=== PATIENT | female | born 1985 | race African-American/Black ===

== ENCOUNTER 2020-07-09 09:28 | Inpatient (IN) | payer OTHER ==
[2020-07-09] MEDS ORDERED: Sodium Chloride 0.9% 10 ML Syringe FLUSH PRN (09:55)
[2020-07-09] MEDS ORDERED: Lidocaine 1% 50 ML MDV INJECT ONE (09:55)
[2020-07-09] MEDS ORDERED: Nalbuphine 10 MG/1 ML Vial IVPUSH PRN (09:55)
[2020-07-09] MEDS ORDERED: Oxytocin/Lactated Ringers 10 UNIT/1,000 ML BAG IV SCH ×2 (10:00→16:45)
[2020-07-09] MEDS ORDERED: Lidocaine 1.5% with EPINEPHrine 1:200,000 5 ML Amp ONE (11:00)
--- NOTE | 2020-07-09 11:36 | PCM.LDHP ---
L&D History of Present Illness - General Date of Service: 07/09/20 Admit Problem/Dx: Patient Status Order with Admit Dx/Problem 07/09/20 09:56 Patient Status [ADT] Routine Admission Diagnosis/Problem Admission Diagnosis/Problem Source of Information: Patient History Limitations: Reports: No Limitations - History of Present Illness Introduction:: Patient is a 34 y/o at 38 6/7 wks who presents in labor. Contractions started this morning. No pain, bleeding, or spotting. - Related Data Allergies/Adverse Reactions: Allergies Allergy/AdvReac Type Severity Reaction Status Date / Time No Known Allergies Allergy Verified 07/09/20 09:55 Home Medications: Home Meds Aspirin 81 mg PO DAILY 07/09/20 [History] Iron 18 mg PO BID 07/09/20 [History] 105/Iron/Folic AC/Dha [Prena1 True Combo Pack] 1 each PO DAILY 07/09/20 [History] Past Medical History Cardiovascular History: Reports: Other (See Below) (History of gestational HTN) [employer] SPECIALIST History: Reports: , Spontaneous : 5 Para: 2 LMP (Approximate): Hematologic History: Reports: Other (See Below) Other Hematologic History: 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 - Infectious Disease History Infectious Disease History: Reports: TB - Past Surgical History Female Surgical History: Reports: D&C (x2) Social & Family History - Tobacco Use Tobacco Use Status *Q: Never Tobacco User Second Hand Smoke Exposure: No - Alcohol Use Alcohol Use History: No - Recreational Drug Use Recreational Drug Use: No H&P Review of Systems - Review of Systems: Review Of Systems: See Below General: Reports: No Symptoms Pulmonary: Reports: No Symptoms Cardiovascular: Reports: No Symptoms Gastrointestinal: Reports: Abdominal Pain (contractions ) Genitourinary: Reports: No Symptoms Musculoskeletal: Reports: No Symptoms L&D Exam - Exam Exam: See Below - Vital Signs Vital Signs: Last Vital Signs Temp 37.3 C 07/09/20 09:56 Pulse 122 H 07/09/20 09:56 Resp 14 07/09/20 09:56 BP 135/81 07/09/20 09:56 Pulse Ox 100 07/09/20 09:56 Weight: 84.822 kg - OB Specific Contraction Intensity: Moderate to Strong Movement: Active Heart Tones: Present Heart Tones per Min: 145 Heart Rate (FHR) Variability: Moderate (6-25 bmp) Presentation: Vertex - Madrid Score Madrid Score Cervix Position: Midposition Madrid Score Consistency: Soft [place] Score Effacement: >80% [place] Score Dilation: > 5 cm Madrid Score 's Station: -2 [place] Score Total: 10 - Exam General: Alert, Oriented, Cooperative Lungs: Clear to Auscultation, Normal Respiratory Effort Cardiovascular: Regular Rate, Regular Rhythm GI/Abdominal Exam: Soft, Non-Tender Genitourinary: Normal external exam Extremities: Normal Inspection Skin: Warm, Dry, Intact - Patient Data Lab Results Last 24 hrs: Laboratory Results - last 24 hr 07/09/20 07/09/20 07/09/20 Range/Units 10:05 10:16 10:16 WBC 8.32 (3.98-10.04) K/mm3 RBC 4.13 (3.98-5.22) M/mm3 Hgb 11.4 (11.2-15.7) gm/dl Hct 33.5 L (34.1-44.9) % MCV 81.1 (79.4-94.8) fl MCH 27.6 (25.6-32.2) pg MCHC 34.0 (32.2-35.5) g/dl RDW Std Deviation 51.1 H (36.4-46.3) fL Plt Count 201 (182-369) K/mm3 MPV 10.4 (9.4-12.3) fl Neut % (Auto) 79.2 H (34.0-71.1) % Lymph % (Auto) 12.4 L (19.3-51.7) % [place] % (Auto) 7.2 (4.7-12.5) % Eos % (Auto) 1.0 (0.7-5.8) Baso % (Auto) 0.2 (0.1-1.2) % Neut # (Auto) 6.59 H (1.56-6.13) K/mm3 Lymph # (Auto) 1.03 L (1.18-3.74) K/mm3 [place] # (Auto) 0.60 H (0.24-0.36) K/mm3 Eos # (Auto) 0.08 (0.04-0.36) K/mm3 Baso # (Auto) 0.02 (0.01-0.08) K/mm3 Manual Slide Review Normal smear SARS-CoV-2 RNA (SHERRY) Negative (NEGATIVE) Blood Type A POSITIVE Gel Antibody Screen Negative Result Diagrams: 07/09/20 10:16 - Problem List (1) 38 weeks gestation of SNOMED Code(s): 81016227 ICD Code: Z3A.38 - 38 WEEKS GESTATION OF Status: Acute Current Visit: Yes (2) Normal labor SNOMED Code(s): 34839462 ICD Code: O80 - ENCOUNTER FOR FULL-TERM UNCOMPLICATED DELIVERY; Z37.9 - OUTCOME OF DELIVERY, UNSPECIFIED Status: Acute Current Visit: Yes Problem List Initiated/Reviewed/Updated: Yes Orders Last 24hrs: Active Orders 24 hr Category Date Time Status Patient Status [ADT] Routine ADT 07/09/20 09:56 Active Activity as Tolerated [RC] PFP Care 07/09/20 09:56 Active Communication Order [RC] ASDIRECTED Care 07/09/20 09:56 Active Notify Provider [RC] PFP Care 07/09/20 09:56 Active Notify Provider [RC] PRN Care 07/09/20 09:56 Active Peripheral IV Care [RC] . DIRECTED Care 07/09/20 09:57 Active Pump Management, Intrathecal [RC] ASDIRECTED Care 07/09/20 10:01 Active Urinary Catheter Assessment [RC] ASDIRECTED Care 07/09/20 09:55 Active Vital Signs [RC] PER UNIT ROUTINE Care 07/09/20 09:56 Active Regular Diet [DIET] Diet 07/09/20 Breakfast Active PATIENT RETYPE [BBK] Routine Lab 07/09/20 11:23 Ordered RAPID PLASMA REAGIN,RPR [CHEM] Routine Lab 07/09/20 10:16 Received Lactated Ringers [Ringers, Lactated] 1,000 ml Med 07/09/20 10:00 Active IV ASDIRECTED Nalbuphine [Nubain] Med 07/09/20 09:55 Active 10 mg IVPUSH Q2H PRN Oxytocin/Lactated Ringers [Pitocin in LR 10 Units/1,000 Med 07/09/20 10:00 Active ML] 10 unit in 1,000 ml IV .CONTINUOUS Sodium Chloride 0.9% [Saline Flush] Med 11/25/20 09:55 Active 10 ml FLUSH ASDIRECTED PRN Electronic Heart Tones Ext w TOCO [WOMSER] Oth 07/09/20 09:56 Ordered Routine Electronic Heart Tones Internal [WOMSER] Per Unit Ot 07/09/20 09:56 Ordered Routine Peripheral IV Insertion Adult [OM.PC] Routine Ot 07/09/20 09:56 Ordered Resuscitation Status Routine Resus Stat 07/09/20 09:55 Ordered Medication Orders Oxytocin/Lactated Ringer's (Pitocin In Lr 10 Units/1,000 Ml) 10 unit in 1,000 mls @ 500 mls/hr IV .CONTINUOUS RONI Lactated Ringer's (Ringers, Lactated) 1,000 mls @ 100 mls/hr IV ASDIRECTED RONI Nalbuphine HCl (Nubain) 10 mg IVPUSH Q2H PRN PRN Reason: Pain Sodium Chloride (Saline Flush) 10 ml FLUSH ASDIRECTED PRN PRN Reason: Keep Vein Open Assessment/Plan Comment:: * Labs * GBS negative * Pain management per patient preference * Anticipate
[2020-07-09] MEDS ORDERED: Bupivacaine/fentaNYL/NS 100 ML Bag EPIDUR PRN (11:37)
[2020-07-09] MEDS ORDERED: fentaNYL 100 MCG/2 ML SDV EPIDUR PRN (11:37)
[2020-07-09] MEDS ORDERED: ePHEDrine 50 MG/ML SDV IVPUSH PRN (11:37)
[2020-07-09] MEDS ORDERED: diphenhydrAMINE 50 MG/ML SDV IVPUSH PRN (11:37)
[2020-07-09] MEDS: Lactated Ringers 1,000 ML IV SCH ×3 (11:57→13:11)
--- NOTE | 2020-07-09 12:14 | PCM.PREANE ---
Preanesthetic Assessment - Anesthesia/Transfusion/Family Hx Anesthesia History: Prior Anesthesia Without Reaction Transfusion History: No Prior Transfusion(s) - Review of Systems General: No Symptoms Pulmonary: No Symptoms Cardiovascular: No Symptoms Gastrointestinal: No Symptoms Neurological: No Symptoms Other: Reports: None - Physical Assessment NPO Status Date: 07/08/20 NPO Status Time: 09:00 Vital Signs: Last Vital Signs Temp 99.2 F 07/09/20 09:56 Pulse 122 H 07/09/20 09:56 Resp 14 07/09/20 09:56 BP 135/81 07/09/20 09:56 Pulse Ox 100 07/09/20 09:56 Height: 1.68 m Weight: 84.822 kg ASA Class: 2 Mental Status: Alert & Oriented x3 Airway Class: Mallampati = 2 Dentition: Reports: Normal Dentition Thyro-Mental Finger Breadths: 3 Mouth Opening Finger Breadths: 3 ROM/Head Extension: Full Lungs: Clear to Auscultation, Normal Respiratory Effort Cardiovascular: Regular Rate, Regular Rhythm - Lab Values: Laboratory Last Values WBC 8.32 K/mm3 (3.98-10.04) 07/09/20 10:16 RBC 4.13 M/mm3 (3.98-5.22) 07/09/20 10:16 Hgb 11.4 gm/dl (11.2-15.7) 07/09/20 10:16 Hct 33.5 % (34.1-44.9) L 07/09/20 10:16 MCV 81.1 fl (79.4-94.8) 07/09/20 10:16 MCH 27.6 pg (25.6-32.2) 07/09/20 10:16 MCHC 34.0 g/dl (32.2-35.5) 07/09/20 10:16 RDW Std Deviation 51.1 fL (36.4-46.3) H 07/09/20 10:16 Plt Count 201 K/mm3 (182-369) 07/09/20 10:16 MPV 10.4 fl (9.4-12.3) 07/09/20 10:16 Neut % (Auto) 79.2 % (34.0-71.1) H 07/09/20 10:16 Lymph % (Auto) 12.4 % (19.3-51.7) L 07/09/20 10:16 [place] % (Auto) 7.2 % (4.7-12.5) 07/09/20 10:16 Eos % (Auto) 1.0 (0.7-5.8) 07/09/20 10:16 Baso % (Auto) 0.2 % (0.1-1.2) 07/09/20 10:16 Neut # (Auto) 6.59 K/mm3 (1.56-6.13) H 07/09/20 10:16 Lymph # (Auto) 1.03 K/mm3 (1.18-3.74) L 07/09/20 10:16 [place] # (Auto) 0.60 K/mm3 (0.24-0.36) H 07/09/20 10:16 Eos # (Auto) 0.08 K/mm3 (0.04-0.36) 07/09/20 10:16 Baso # (Auto) 0.02 K/mm3 (0.01-0.08) 07/09/20 10:16 Manual Slide Review Normal smear 07/09/20 10:16 SARS-CoV-2 RNA (SHERRY) Negative (NEGATIVE) 07/09/20 10:05 Blood Type A POSITIVE 07/09/20 10:16 Gel Antibody Screen Negative 07/09/20 10:16 - Allergies Allergies/Adverse Reactions: Allergies Allergy/AdvReac Type Severity Reaction Status Date / Time No Known Allergies Allergy Verified 07/09/20 09:55 - Acknowledgements Anesthesia Type Planned: Epidural Pt an Appropriate Candidate for the Planned Anesthesia: Yes Alternatives and Risks of Anesthesia Discussed w Pt/Guardian: Yes Pt/Guardian Understands and Agrees with Anesthesia Plan: Yes 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 PP hemorrhage after delivery Hematologic History: Reports: Anemia, Other (See Below) Other Hematologic History: 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 - SUBSTANCE USE Tobacco Use Status *Q: Never Tobacco User Second Hand Smoke Exposure: No Recreational Drug Use History: No - HOME MEDS Home Medications: Home Meds Aspirin 81 mg PO DAILY 07/09/20 [History] Iron 18 mg PO BID 07/09/20 [History] 105/Iron/Folic AC/Dha [Prena1 True Combo Pack] 1 each PO DAILY 07/09/20 [History] - CURRENT (IN HOUSE) MEDS Current Meds: Current Medications Diphenhydramine HCl (Benadryl) 25 mg IVPUSH Q6H PRN PRN Reason: pruritis Ephedrine Sulfate (Ephedrine Sulfate) 5 mg IVPUSH ASDIRECTED PRN PRN Reason: Hypotension Fentanyl (Sublimaze) 100 mcg EPIDUR Q3H PRN PRN Reason: Pain Fentanyl/Bupivacaine HCl (Fentanyl/Bupivacaine/Ns 2 Mcg-0.125% 100 Ml) 100 ml EPIDUR ASDIRECTED PRN PRN Reason: Pain Oxytocin/Lactated Ringer's (Pitocin In Lr 10 Units/1,000 Ml) 10 unit in 1,000 mls @ 500 mls/hr IV .CONTINUOUS RONI Lactated Ringer's (Ringers, Lactated) 1,000 mls @ 100 mls/hr IV ASDIRECTED RONI Last Admin: 07/09/20 11:57 Dose: 100 mls/hr Documented by: Nalbuphine HCl (Nubain) 10 mg IVPUSH Q2H PRN PRN Reason: Pain Sodium Chloride (Saline Flush) 10 ml FLUSH ASDIRECTED PRN PRN Reason: Keep Vein Open Discontinued Medications Lidocaine HCl (Xylocaine 1%) 50 ml INJECT ONETIME ONE Stop: 07/09/20 09:56
[2020-07-09] MEDS ORDERED: Methylergonovine 0.2 MG/1 ML Amp IM STA (18:06)
--- NOTE | 2020-07-09 18:06 | PCM.DEL ---
L & D Note - General Info Date of Service: 07/09/20 - Delivery Note Labor: Spontaneous Delivery Outcome: Livebirth Delivery Method: Spontaneous Vaginal Delivery-Single Delivery Mode: Spontaneous Presentation: Vertex Nuchal Cord: None Anesthesia Type: Epidural Amniotic Fluid Description: Clear Episiotomy Type: None Laceration: 2nd Degree, Perineal Suture type: Vicryl Suture size: 2-0 Placenta: Intact, Spontaneous Cord: 3 Vessels Estimated Blood Loss: 100 Resuscitation Needed: Yes : Bulb Syringe, Stimulated, Leslie Used, Warmer Used Delivery Comments (Free Text/Narrative):: Patient found to be complete and began pushing. With maternal pushing effort head delivered from an JABARI presentation. With downward traction shoulders and body delivered. Infant placed on maternal abdomen. Cord clamped and cut. Cord blood obtained. Placenta allowed time to separate and expelled intact. Inspection of perineum showed small 2nd degree. This was repaired with a 2-0 Vicryl. Initial EBL after delivery 100 cc. About 5-10 minutes after delivery had small 100-200 cc gush. Given 0.2 mg Methergine with good response - General Info Date of Service: 07/09/20 - Patient Data Vitals - Most Recent: Last Vital Signs Temp 37.3 C 07/09/20 09:56 Pulse 122 H 07/09/20 09:56 Resp 14 07/09/20 09:56 BP 135/81 07/09/20 09:56 Pulse Ox 100 07/09/20 09:56 Weight - Most Recent: 84.822 kg Lab Results Last 24 Hours: Laboratory Results - last 24 hr 07/09/20 07/09/20 07/09/20 Range/Units 10:05 10:16 10:16 WBC 8.32 (3.98-10.04) K/mm3 RBC 4.13 (3.98-5.22) M/mm3 Hgb 11.4 (11.2-15.7) gm/dl Hct 33.5 L (34.1-44.9) % MCV 81.1 (79.4-94.8) fl MCH 27.6 (25.6-32.2) pg MCHC 34.0 (32.2-35.5) g/dl RDW Std Deviation 51.1 H (36.4-46.3) fL Plt Count 201 (182-369) K/mm3 MPV 10.4 (9.4-12.3) fl Neut % (Auto) 79.2 H (34.0-71.1) % Lymph % (Auto) 12.4 L (19.3-51.7) % [place] % (Auto) 7.2 (4.7-12.5) % Eos % (Auto) 1.0 (0.7-5.8) Baso % (Auto) 0.2 (0.1-1.2) % Neut # (Auto) 6.59 H (1.56-6.13) K/mm3 Lymph # (Auto) 1.03 L (1.18-3.74) K/mm3 [place] # (Auto) 0.60 H (0.24-0.36) K/mm3 Eos # (Auto) 0.08 (0.04-0.36) K/mm3 Baso # (Auto) 0.02 (0.01-0.08) K/mm3 Manual Slide Review Normal smear SARS-CoV-2 RNA (SHERRY) Negative (NEGATIVE) Blood Type A POSITIVE Gel Antibody Screen Negative Med Orders - Current: Current Medications Diphenhydramine HCl (Benadryl) 25 mg IVPUSH Q6H PRN PRN Reason: pruritis Ephedrine Sulfate (Ephedrine Sulfate) 5 mg IVPUSH ASDIRECTED PRN PRN Reason: Hypotension Fentanyl (Sublimaze) 100 mcg EPIDUR Q3H PRN PRN Reason: Pain Last Admin: 07/09/20 12:17 Dose: 100 mcg Documented by: Fentanyl/Bupivacaine HCl (Fentanyl/Bupivacaine/Ns 2 Mcg-0.125% 100 Ml) 100 ml EPIDUR ASDIRECTED PRN PRN Reason: Pain Last Admin: 07/09/20 12:18 Dose: 100 ml Documented by: Oxytocin/Lactated Ringer's (Pitocin In Lr 10 Units/1,000 Ml) 10 unit in 1,000 mls @ 500 mls/hr IV .CONTINUOUS RONI Lactated Ringer's (Ringers, Lactated) 1,000 mls @ 100 mls/hr IV ASDIRECTED RONI Last Admin: 07/09/20 13:11 Dose: 100 mls/hr Documented by: Oxytocin/Lactated Ringer's (Pitocin In Lr 10 Units/1,000 Ml) 10 unit in 1,000 mls @ 12 mls/hr IV TITRATE RONI; Protocol Last Admin: 07/09/20 16:48 Dose: 2 munits/min, 12 mls/hr Documented by: Nalbuphine HCl (Nubain) 10 mg IVPUSH Q2H PRN PRN Reason: Pain Sodium Chloride (Saline Flush) 10 ml FLUSH ASDIRECTED PRN PRN Reason: Keep Vein Open Discontinued Medications Lidocaine HCl (Xylocaine 1%) 50 ml INJECT ONETIME ONE Stop: 07/09/20 09:56 Tranexamic Acid (Cyklokapron) Confirm Administered Dose 1,000 mg .ROUTE .STK-MED ONE Stop: 07/09/20 16:15 - Problem List & Annotations (1) 38 weeks gestation of SNOMED Code(s): 99123391 Code(s): Z3A.38 - 38 WEEKS GESTATION OF Status: Acute Current Visit: Yes (2) Normal labor SNOMED Code(s): 96957680 Code(s): O80 - ENCOUNTER FOR FULL-TERM UNCOMPLICATED DELIVERY; Z37.9 - OUTCOME OF DELIVERY, UNSPECIFIED Status: Acute Current Visit: Yes (3) Vaginal delivery SNOMED Code(s): 176416458 Code(s): O80 - ENCOUNTER FOR FULL-TERM UNCOMPLICATED DELIVERY Status: Acute Current Visit: Yes - Problem List Review Problem List Initiated/Reviewed/Updated: Yes - My Orders Last 24 Hours: My Active Orders 07/09/20 Breakfast Regular Diet [DIET] 07/09/20 09:55 Urinary Catheter Assessment [RC] ASDIRECTED Nalbuphine [Nubain] 10 mg IVPUSH Q2H PRN Sodium Chloride 0.9% [Saline Flush] 10 ml FLUSH ASDIRECTED PRN Resuscitation Status Routine 07/09/20 09:56 Patient Status [ADT] Routine Activity as Tolerated [RC] PFP Communication Order [RC] ASDIRECTED Notify Provider [RC] PFP Notify Provider [RC] PRN Vital Signs [RC] PER UNIT ROUTINE Electronic Heart Tones Ext w TOCO [WOMSER] Routine Electronic Heart Tones Internal [WOMSER] Per Unit Routine Peripheral IV Insertion Adult [OM.PC] Routine 07/09/20 09:57 Peripheral IV Care [RC] . DIRECTED 07/09/20 10:00 Lactated Ringers [Ringers, Lactated] 1,000 ml IV ASDIRECTED Oxytocin/Lactated Ringers [Pitocin in LR 10 Units/1,000 ML] 10 unit in 1,000 ml IV .CONTINUOUS 07/09/20 10:01 Pump Management, Intrathecal [RC] ASDIRECTED 07/09/20 10:16 RAPID PLASMA REAGIN,RPR [CHEM] Routine 07/09/20 11:23 PATIENT RETYPE [BBK] Routine 07/09/20 16:45 Oxytocin/Lactated Ringers [Pitocin in LR 10 Units/1,000 ML] 10 unit in 1,000 ml IV TITRATE - Assessment Assessment:: PPD#0 - Plan Plan:: * Routine cares * Monitor bleeding closely * Breast feeding * Discharge home in 1-2 days
[2020-07-09] MEDS ORDERED: Acetaminophen 325 MG Tab PO PRN (18:26)
[2020-07-09] MEDS ORDERED: Witch Hazel Medicated Pads 40/Jar TOP PRN (18:26)
[2020-07-09] MEDS ORDERED: Docusate Sodium 100 MG Cap PO PRN (18:26)
[2020-07-09] MEDS ORDERED: Benzocaine/Menthol 20%-0.5% Spray 56 GM Canister TOP PRN (18:26)
[2020-07-09] MEDS: Ibuprofen 600 MG Tab PO PRN (19:42)
--- NOTE | 2020-07-10 08:04 | PCM.DCSUM1 ---
Discharge Summary - Hospital Course Diagnosis: Stroke: No - Discharge Data Discharge Date: 07/10/20 Discharge Disposition: Home, Self-Care 01 Condition: Good - Referral to Home Health Primary Care Physician: Donya Avitia MD - Patient Instructions Diet: Usual Diet as Tolerated Activity: No Strenuous Activities Driving: May Drive Today Showering/Bathing: December Shower Notify Provider of: Fever, Increased Pain, Swelling and Redness, Drainage - Discharge Plan *PRESCRIPTION DRUG MONITORING PROGRAM REVIEWED*: No *COPY OF PRESCRIPTION DRUG MONITORING REPORT IN PATIENT JAIME: No Home Medications: Home Meds Aspirin 81 mg PO DAILY 07/09/20 [History] Iron 18 mg PO BID 07/09/20 [History] 105/Iron/Folic AC/Dha [Prena1 True Combo Pack] 1 each PO DAILY 07/09/20 [History] Referrals: Donya Avitia MD [Primary Care Provider] - (2 weeks) - Discharge Summary/Plan Comment DC Time >30 min.: No - Patient Data Vitals - Most Recent: Last Vital Signs Temp 36.7 C 07/10/20 04:09 Pulse 70 07/10/20 04:09 Resp 14 07/10/20 04:09 BP 131/95 H 07/10/20 04:09 Pulse Ox 99 07/10/20 04:09 Weight - Most Recent: 84.822 kg I&O - Last 24 hours: Intake & Output 07/09/20 07/10/20 07/10/20 22:59 06:59 14:59 Intake Total 4000 Balance 4000 Lab Results - Last 24 hrs: Laboratory Results - last 24 hr 07/09/20 07/09/20 07/09/20 Range/Units 10:05 10:16 10:16 WBC 8.32 (3.98-10.04) K/mm3 RBC 4.13 (3.98-5.22) M/mm3 Hgb 11.4 (11.2-15.7) gm/dl Hct 33.5 L (34.1-44.9) % MCV 81.1 (79.4-94.8) fl MCH 27.6 (25.6-32.2) pg MCHC 34.0 (32.2-35.5) g/dl RDW Std Deviation 51.1 H (36.4-46.3) fL Plt Count 201 (182-369) K/mm3 MPV 10.4 (9.4-12.3) fl Neut % (Auto) 79.2 H (34.0-71.1) % Lymph % (Auto) 12.4 L (19.3-51.7) % [place] % (Auto) 7.2 (4.7-12.5) % Eos % (Auto) 1.0 (0.7-5.8) Baso % (Auto) 0.2 (0.1-1.2) % Neut # (Auto) 6.59 H (1.56-6.13) K/mm3 Lymph # (Auto) 1.03 L (1.18-3.74) K/mm3 [place] # (Auto) 0.60 H (0.24-0.36) K/mm3 Eos # (Auto) 0.08 (0.04-0.36) K/mm3 Baso # (Auto) 0.02 (0.01-0.08) K/mm3 Manual Slide Review Normal smear RPR (NONREACTIVE) SARS-CoV-2 RNA (SHERRY) Negative (NEGATIVE) Blood Type A POSITIVE Gel Antibody Screen Negative 07/09/20 Range/Units 10:16 WBC (3.98-10.04) K/mm3 RBC (3.98-5.22) M/mm3 Hgb (11.2-15.7) gm/dl Hct (34.1-44.9) % MCV (79.4-94.8) fl MCH (25.6-32.2) pg MCHC (32.2-35.5) g/dl RDW Std Deviation (36.4-46.3) fL Plt Count (182-369) K/mm3 MPV (9.4-12.3) fl Neut % (Auto) (34.0-71.1) % Lymph % (Auto) (19.3-51.7) % [place] % (Auto) (4.7-12.5) % Eos % (Auto) (0.7-5.8) Baso % (Auto) (0.1-1.2) % Neut # (Auto) (1.56-6.13) K/mm3 Lymph # (Auto) (1.18-3.74) K/mm3 [place] # (Auto) (0.24-0.36) K/mm3 Eos # (Auto) (0.04-0.36) K/mm3 Baso # (Auto) (0.01-0.08) K/mm3 Manual Slide Review RPR Non-reactive (NONREACTIVE) SARS-CoV-2 RNA (SHERRY) (NEGATIVE) Blood Type Gel Antibody Screen Med Orders - Current: Current Medications Acetaminophen (Tylenol) 650 mg PO Q4H PRN PRN Reason: mild pain or fever Benzocaine/Menthol (Dermoplast Pain Relief [place]) 0 gm TOP ASDIRECTED PRN PRN Reason: Perineal Comfort Measure Last Admin: 07/09/20 19:41 Dose: 1 canister Documented by: Docusate Sodium (Colace) 100 mg PO BID PRN PRN Reason: Constipation Ibuprofen (Motrin) 600 mg PO Q6H PRN PRN Reason: Mild pain or fever Last Admin: 07/09/20 19:42 Dose: 600 mg Documented by: Cristy Goodwin (Melanie) 1 pad TOP ASDIRECTED PRN PRN Reason: Perineal Comfort Measure Last Admin: 07/09/20 19:42 Dose: 1 tub Documented by: Discontinued Medications Diphenhydramine HCl (Benadryl) 25 mg IVPUSH Q6H PRN PRN Reason: pruritis Ephedrine Sulfate (Ephedrine Sulfate) 5 mg IVPUSH ASDIRECTED PRN PRN Reason: Hypotension Fentanyl (Sublimaze) 100 mcg EPIDUR Q3H PRN PRN Reason: Pain Last Admin: 07/09/20 12:17 Dose: 100 mcg Documented by: Fentanyl/Bupivacaine HCl (Fentanyl/Bupivacaine/Ns 2 Mcg-0.125% 100 Ml) 100 ml EPIDUR ASDIRECTED PRN PRN Reason: Pain Last Admin: 07/09/20 12:18 Dose: 100 ml Documented by: Oxytocin/Lactated Ringer's (Pitocin In Lr 10 Units/1,000 Ml) 10 unit in 1,000 mls @ 500 mls/hr IV .CONTINUOUS RONI Lactated Ringer's (Ringers, Lactated) 1,000 mls @ 100 mls/hr IV ASDIRECTED RONI Last Admin: 07/09/20 13:11 Dose: 100 mls/hr Documented by: Oxytocin/Lactated Ringer's (Pitocin In Lr 10 Units/1,000 Ml) 10 unit in 1,000 mls @ 12 mls/hr IV TITRATE RONI; Protocol Last Admin: 07/09/20 16:48 Dose: 2 munits/min, 12 mls/hr Documented by: Lidocaine HCl (Xylocaine 1%) 50 ml INJECT ONETIME ONE Stop: 07/09/20 09:56 Last Admin: 07/10/20 06:52 Dose: Not Given Documented by: Methylergonovine Maleate (Methergine) 0.2 mg IM NOW STA Stop: 07/09/20 18:07 Last Admin: 07/09/20 18:18 Dose: 0.2 mg Documented by: Nalbuphine HCl (Nubain) 10 mg IVPUSH Q2H PRN PRN Reason: Pain Sodium Chloride (Saline Flush) 10 ml FLUSH ASDIRECTED PRN PRN Reason: Keep Vein Open Tranexamic Acid (Cyklokapron) Confirm Administered Dose 1,000 mg .ROUTE .STK-MED ONE Stop: 07/09/20 16:15 Last Admin: 07/10/20 06:51 Dose: Not Given Documented by:
[2020-07-10] MEDS: Ibuprofen 600 MG Tab PO PRN ×2 (08:24→14:23)
--- NOTE | 2020-07-10 10:23 | PCM48HPAN ---
Post Anesthesia Note - EVALUATION WITHIN 48HRS OF ANESTHETIC Vital Signs in Normal Range: Yes Patient Participated in Evaluation: Yes Respiratory Function Stable: Yes Airway Patent: Yes Cardiovascular Function Stable: Yes Hydration Status Stable: Yes Pain Control Satisfactory: Yes Nausea and Vomiting Control Satisfactory: Yes Mental Status Recovered: Yes Vital Signs: Last Vital Signs Temp 98.1 F 07/10/20 08:26 Pulse 83 07/10/20 08:26 Resp 16 07/10/20 08:26 BP 131/82 07/10/20 08:26 Pulse Ox 100 07/10/20 08:26 - COMMENTS/OBSERVATIONS Free Text/Narrative:: Patient is on her day 1. Stated understanding about possible backaches following epidural anesthesia. Mentions having some moderate back soreness at this time. Explanation given about importance of avoiding back straining. Denies any headache or lightheadedness at this time. Comfortable now. Ambulating, no difficulty urinating.
== END 2020-07-10 20:10 | disposition home or self-care (01) | DRG 807 ==
LOC: JD.OBCHECK 09:28 → JD.OB 09:39 → JD.OBCHECK 09:55 → JD.OB 09:56 → OBSVTOIN 17:45 → JD.OB 17:46
PROVIDERS: ADMIT Obstetrics & Gynecology; ATTEND Obstetrics & Gynecology
PROC: 10E0XZZ Delivery of Products of Conception, External Approach (ICD-10-PCS; principal; 2020-07-09)
PROC: 0KQM0ZZ Repair Perineum Muscle, Open Approach (ICD-10-PCS; 2020-07-09)
PROC: 10907ZC Drainage of Amniotic Fluid, Therapeutic from Products of Conception, Via Natural or Artificial Opening (ICD-10-PCS; 2020-07-09)
PROC: 3E0R3BZ Introduction of Anesthetic Agent into Spinal Canal, Percutaneous Approach (ICD-10-PCS; 2020-07-09)
PROC: 00HU33Z Insertion of Infusion Device into Spinal Canal, Percutaneous Approach (ICD-10-PCS; 2020-07-09)
DX: O70.1 Second degree perineal laceration during delivery (principal); Z37.0 Single live birth; Z3A.38 38 weeks gestation of pregnancy; Z20.828 Contact with and (suspected) exposure to other viral communicable diseases
CPT/HCPCS: 36415; 51702; 59025; 59409; 85025; 86592; 86850; 86900; 86901; A9270-GY; J2210; J2590; J3010; J7120; U0002